=== PATIENT | male | born 2000 | race Hispanic/Latino ===

== ENCOUNTER 2019-06-25 09:09 | Emergency (ER) | payer SELFPAY ==
[2019-06-25] MEDS ORDERED: Ibuprofen 800 MG TAB ONE (09:40)
[2019-06-25] MEDS ORDERED: Acetaminophen 500 MG TAB ONE (09:40)
== END 2019-06-25 10:35 | disposition home or self-care (01) ==
LOC: ERS 09:09
DX: S50.02XA Contusion of left elbow, initial encounter (principal); V43.62XA Car passenger injured in collision with other type car in traffic accident, initial encounter